=== PATIENT | female | born 1975 | race Two or more races ===

== ENCOUNTER 2020-11-30 13:54 | Outpatient (CLI) | payer OTHER | END 2020-11-30 14:08 | disposition HB | LOC: MAMO-SONO 13:54 | PROVIDERS: ATTEND Obstetrics & Gynecology | DX: Z12.31 Encounter for screening mammogram for malignant neoplasm of breast (principal); N60.11 Diffuse cystic mastopathy of right breast; N60.12 Diffuse cystic mastopathy of left breast; N64.59 Other signs and symptoms in breast; N83.02 Follicular cyst of left ovary; N83.01 Follicular cyst of right ovary ==